=== PATIENT | female | born 1970 | race Caucasian/White ===

== ENCOUNTER 2021-03-22 20:03 | Emergency (ER) | payer OTHER ==
[~2021-03-22] VITALS: Ht 167.6 cm; Wt 72.6 kg
[2021-03-22] MEDS ORDERED: PREDNISONE 20 M20 M1 PO (20:40)
[2021-03-22 20:51] VITALS: BP 109/85
== END 2021-03-22 20:58 | disposition home or self-care (01) ==
LOC: ER 20:03
DX: R22.0 Localized swelling, mass and lump, head (principal); T39.315A Adverse effect of propionic acid derivatives, initial encounter; Y92.89 Other specified places as the place of occurrence of the external cause; Z88.6 Allergy status to analgesic agent; Z72.89 Other problems related to lifestyle; T78.40XA Allergy, unspecified, initial encounter; X58.XXXA Exposure to other specified factors, initial encounter